=== PATIENT | female | born 1985 | race Caucasian/White ===

== ENCOUNTER → 2016-07-29 | Outpatient (CLI) | payer BC, OTHER ==
[~2016-07-29] MED LIST: PRENTAB26 PO
[2016-07-29 12:20] LABS: BASO % 0.2 %; BASO ABS # 0.02 K/uL (0-0.2); COMPLETE YES; EOS % 1.3 %; HEMATOCRIT 41.9 % (37-47); IG% 0.2 %; LYMPH ABS # 2.05 K/uL (1.2-3.4); MEAN CELL VOLUME 89.5 fL (80-100); MEAN CORPUSCULAR HEMOGLOBIN 30.1 pg (25-34); MEAN CORPUSCULAR HGB CONC 33.7 g/dl (32-36); MEAN PLATELET VOLUME 10.7 fL (7.4-10.4); MONO % 8.8 %; NEUT % 68.5 %; PLATELET COUNT 251 K/uL (130-400); RED BLOOD COUNT 4.68 M/uL (4.2-5.4); WHITE BLOOD COUNT 9.75 K/uL (4.8-10.8)
== END | disposition home or self-care (01) ==
LOC: C.LAB1850 10:41
PROVIDERS: ATTEND Obstetrics & Gynecology
DX: Z34.90 Encounter for supervision of normal pregnancy, unspecified, unspecified trimester (principal)

== ENCOUNTER → 2016-07-29 | Outpatient (CLI) | payer BC ==
[2016-07-29 15:57] LABS: URINE APPEARANCE CLEAR (CLEAR); URINE BILIRUBIN NEG (NEG); URINE COLOR YELLOW; URINE EPITHELIAL CELL AUTO >30 /lpf (0-5); URINE NITRITE NEG (NEG); URINE PH 5.5 (4.5-7.5); URINE SPECIFIC GRAVITY 1.017 (1.000-1.030); UROBILINOGEN NEG (NEG)
[2016-07-29 16:15] LABS: MANUAL MICROSCOPIC REQUIRED? NO; REVIEW REQ? NO
[2016-08-02 11:08] LABS: CHLAMYDIA TRACH RNA*** NOT DETECTED (NOT DETECTED); GC (NEIS GONORRHOEAE)RNA** NOT DETECTED (NOT DETECTED)
== END ==
LOC: C.LABSPEC 14:59
PROVIDERS: ATTEND Obstetrics & Gynecology
DX: Z34.90 Encounter for supervision of normal pregnancy, unspecified, unspecified trimester (principal)

== ENCOUNTER → 2016-09-16 | Outpatient (CLI) | payer BC ==
[2016-09-16 17:05] LABS: GTGD 50 Grams
[2016-09-19 15:17] LABS: AFP CONCENTRATION 24.9 NG/ML; AFP MULTIPLE OF MEDIAN 0.77; AFPTS GESTATIONAL AGE 16.1 WEEKS; AFPTS INSULIN DEP DIABETIC? NO; AFPTS MATERNAL WT 155 LBS; ALPHA-FETOPROTEIN RACE CAUCASIAN=W; ESTRIOL MULTIPLE OF MEDIAN 0.79; HISTORY OF NTD NO; INHIBIN A 138 PG/ML; INHIBIN A MOM 0.82; REPEAT SAMPLE? NO; hCG MULTIPLE OF MEDIAN 0.21
== END | disposition home or self-care (01) ==
LOC: C.LAB1850 15:56
PROVIDERS: ATTEND Obstetrics & Gynecology
DX: Z34.82 Encounter for supervision of other normal pregnancy, second trimester (principal)

== ENCOUNTER → 2016-12-12 | Outpatient (CLI) | payer BC ==
[2016-12-12 18:36] LABS: URINE APPEARANCE CLEAR (CLEAR); URINE BILIRUBIN NEG (NEG); URINE COLOR YELLOW; URINE NITRITE NEG (NEG); URINE SPECIFIC GRAVITY 1.013 (1.000-1.030); UROBILINOGEN NEG (NEG)
[2016-12-12 18:38] LABS: MANUAL MICROSCOPIC REQUIRED? NO; REVIEW REQ? NO
== END | disposition home or self-care (01) ==
LOC: C.LABSPEC 17:29
PROVIDERS: ATTEND Obstetrics & Gynecology
DX: Z34.82 Encounter for supervision of other normal pregnancy, second trimester (principal)

== ENCOUNTER → 2016-12-12 | Outpatient (CLI) | payer BC ==
[2016-12-12 17:52] LABS: HEMATOCRIT 36.8 % (37-47)
[2016-12-12 19:41] LABS: GTGD 50 Grams
== END | disposition home or self-care (01) ==
LOC: C.LAB 17:23
PROVIDERS: ATTEND Obstetrics & Gynecology
DX: Z34.82 Encounter for supervision of other normal pregnancy, second trimester (principal)

== ENCOUNTER → 2016-12-21 | Outpatient (CLI) | payer BC | END | disposition home or self-care (01) | LOC: C.LAB1850 07:40 | PROVIDERS: ATTEND Obstetrics & Gynecology | DX: O28.1 Abnormal biochemical finding on antenatal screening of mother (principal); Z3A.00 Weeks of gestation of pregnancy not specified ==

== ENCOUNTER → 2017-02-03 | Outpatient (CLI) | payer BC | END | disposition home or self-care (01) | LOC: C.LABSPEC 18:00 | PROVIDERS: ATTEND Obstetrics & Gynecology | DX: Z34.83 Encounter for supervision of other normal pregnancy, third trimester (principal); Z3A.00 Weeks of gestation of pregnancy not specified ==

== ENCOUNTER 2017-03-10 16:26 | Inpatient (IN) | payer OTHER ==
[~2017-03-10] VITALS: Ht 165.1 cm; Wt 77.3 kg
[2017-03-10 18:38] LABS: HEMATOCRIT 40.8 % (37-47); HEMOGLOBIN 14.1 g/dL (12.0-16.0); MEAN CELL VOLUME 90.5 fL (80-100); MEAN CORPUSCULAR HEMOGLOBIN 31.3 pg (25-34); MEAN CORPUSCULAR HGB CONC 34.6 g/dl (32-36); MEAN PLATELET VOLUME 11.4 fL (7.4-10.4); PLATELET COUNT 209 K/uL (130-400); RED CELL DISTRIBUTION WIDTH CV 13.6 % (11.5-14.5); RED CELL DISTRIBUTION WIDTH SD 44.8 fL (36.4-46.3); WHITE BLOOD COUNT 15.71 K/uL (4.8-10.8)
[2017-03-10 18:56] VITALS: Ht 165.1 cm; Wt 77.3 kg
[2017-03-10] MEDS ORDERED: OXYTOCIN 30 UNITS/500ML NSS IV ONE (20:13)
[2017-03-10] MEDS ORDERED: LACTATED RINGER'S 1000ML 1,000 ML IV SCH (20:32)
[2017-03-10] MEDS ORDERED: LACTATED RINGER'S 1000ML 1,000 ML IV PRN (20:32)
[2017-03-10] MEDS ORDERED: BENZOCAINE 20% AER SPR 82.5 GM CAN EXT PRN (20:45)
[2017-03-10] MEDS ORDERED: OXYTOCIN 30 UNITS/500ML NSS IV PRN (20:45)
[2017-03-10] MEDS ORDERED: ACETAMINOPHEN/CODEINE 300/30MG TAB PO PRN ×2 (20:45)
[2017-03-10] MEDS ORDERED: HYDROCORTISONE ACETATE 25 MG SUPP PR PRN (20:45)
[2017-03-10] MEDS ORDERED: SUPERCREAM 0.870 % 15GM JAR EXT PRN (20:45)
[2017-03-10] MEDS ORDERED: OXYCODONE/ACETAMINOPHEN 5-325 TAB PO PRN (20:45)
[2017-03-10] MEDS ORDERED: ACETAMINOPHEN 325 MG TAB PO PRN (20:45)
[2017-03-10] MEDS ORDERED: LANOLIN OINT EXT PRN (20:45)
[2017-03-10 23:15] VITALS: BP 108/62; PULSE 73; TEMP 36.4
[2017-03-10] MEDS: IBUPROFEN 600 MG TAB PO PRN (23:29)
--- NOTE | 2017-03-11 03:25 | DELIVERY SUMMARY ---
DATE OF OPERATION: 03/10/2017 PREOPERATIVE DIAGNOSES: 1. Intrauterine at 41+ weeks. 2. Spontaneous rupture of membranes for thick meconium. POSTOPERATIVE DIAGNOSES: Same. PROCEDURE: 1. Amniotomy of forebag. 2. Normal spontaneous vaginal delivery. 3. Second degree perineal laceration with repair. SURGEON: Vanesa Vazquez MD. ANESTHESIA: Local infiltration of lidocaine to the perineum. ESTIMATED BLOOD LOSS: 350 mL. DESCRIPTION OF PROCEDURE: The patient presented to labor and delivery where she was found in the office during her NST to rupture for meconium. She was examined on admission and found to be 4, 80 and -2. A forebag was ruptured for a thick meconium. The patient progressed spontaneously to complete complete and +2 station and pushed over approximately 2 contractions to deliver a viable male in YARON presentation. The rest of the infant was then delivered without difficulty. There was immediate cry and the baby was vigorous so the nose and mouth were bulb suctioned. The was placed on the maternal abdomen for drying and attention. The cord was clamped at 1 minute of life. The cord blood was obtained. Placenta delivered spontaneously intact with a 3-vessel cord. Cervix, sulci and rectum were examined and found to be intact. A second degree perineal laceration was repeated with 3-0 Vicryl in a normal standard fashion. Hemostasis with dilute Pitocin and fundal massage. Estimated blood loss 350 mL. Apgars 8 and 9. Mother and baby doing well at the end of the procedure. I attest to the content of the Intraoperative Record and any orders documented therein. Any exception s are noted below.
[2017-03-11 04:40] VITALS: BP 102/64; PULSE 64; TEMP 37.1
[2017-03-11 06:18] LABS: HEMOGLOBIN 12.1 g/dL (12.0-16.0)
--- NOTE | 2017-03-11 06:54 | OB/GYN Progress Note ---
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 Subjective conversation w/ patient, physical exam, chart review, lab review Ambulation: ambulating normally Voiding: no voiding problems Passing Gas: Yes Diet Tolerance: Regular Diet Lochia: Moderate Feeding Type: Breast Feeding Pain: controlled with motrin Review of Systems Constitutional: No fever, No chills Respiratory: No cough, No shortness of breath Cardiac: No chest pain Abdomen: No pain, No nausea, No vomiting Female : No dysuria Objective Vital Signs Date Time Temp Pulse Resp B/P (MAP) Pulse Ox O2 Delivery O2 Flow Rate FiO2 03/11/17 04:40 37.1 64 18 102/64 (77) Room Air 03/10/17 23:15 Room Air 03/10/17 23:15 36.4 73 18 108/62 (77) Room Air Physical Exam General Appearance: WELL-APPEARING, WD/WN, NO APPARENT DISTRESS Respiratory/Chest: lungs clear, normal breath sounds Cardiovascular: regular rate, rhythm, no murmur Abdomen: non tender, no organomegaly Fundus: Firm Extremities: normal inspection, no pedal edema, no calf tenderness Laboratory Results Last 24 Hours Test 03/10/17 18:26 03/11/17 06:02 White Blood Count 15.71 K/uL Red Blood Count 4.51 M/uL Hemoglobin 14.1 g/dL 12.1 g/dL Hematocrit 40.8 % 36.0 % Mean Corpuscular Volume 90.5 fL Mean Corpuscular Hemoglobin 31.3 pg Mean Corpuscular Hemoglobin Concent 34.6 g/dl RDW Standard Deviation 44.8 fL RDW Coefficient of Variation 13.6 % Platelet Count 209 K/uL Mean Platelet Volume 11.4 fL Assessment and Plan Post- Day Number: 1 Continue Routine Care: 31 f vaginal delivery on Mar 10 at 41 wks. Pt is GBS-/RI/O+ Pt is doing well clinically. Vitals reviewed and WNL. Hgb was 14.1 at admission , 12.1 today. Plan; 1. Encourage ambulation 2. Monitor lochia 3. Control pain 4. Support BF Resident Physician Supervision Note: I interviewed and examined the patient. Discussed with Dr. Madrigal and agree with findings and plan as documented in the note. Any exceptions or clarifications are listed here: Doing well, routine care. Documented By: Vanesa Vazquez
--- NOTE | 2017-03-11 06:57 | Discharge Instructions ---
Discharge Instructions Date of Service Mar 11, 2017. Admission Reason for Admission: Ruptured Membranes Discharge Discharge Diagnosis / Problem: vaginal delivery Discharge Goals Goal(s): Routine recovery after delivery Medications Continue Dispensed Medications: supercream, dermaplast, tucks, lansinoh Activity Recommendations Activity Limitations: per Instructions/Follow-up section . Instructions / Follow-Up Instructions / Follow-Up ACTIVITY RECOMMENDATIONS: * Gradual return to full activity over the next 2-3 weeks. * No lifting - nothing heavier than baby over the next 2-3 weeks. * Do not engage in vigorous exercise, sexual activity or sports until cleared by your physician. * Do not drive or operate any motorized equipment until cleared by your physician. * You may shower/bathe daily. MEDICATIONS: For discomfort or pain, you may use Acetaminophen (Tylenol), Ibuprofen (Advil), or Naproxen (Aleve) following the package directions. For constipation you may use Colace following the package directions. BREAST CARE: If you are not breast feeding: * Wear a supportive bra 24 hours a day for one to two weeks. * Avoid stimulating your breasts and nipples as much as possible during the first few weeks after delivery. * When taking a shower, have the warm water hit your back, not breasts. * When your breasts feel full, apply ice packs. Usually three to four times a day helps ease the discomfort. * Take a mild pain medication (Tylenol / Motrin) when you are uncomfortable. If breast feeding: * Use breast milk to lubricate nipples. Lansinoh cream may be used for sore nipples. You do not need to remove cream prior to breast feeding. If using a different brand of cream, check the label for directions regarding removal of cream prior to nursing. * Wear a supportive bra. * If having problems with breasts or breast feeding, call a risk control consultant or your health care provider. EPISIOTOMY CARE: After delivery, if you have an episiotomy (stitches), the following steps will ease discomfort and aid healing. * For the first 24 hours after delivery, place ice packs next to your episiotomy to help reduce swelling. * After the first 24 hour-period, sitz baths, either portable or in the tub, are suggested. A shower with a shower arm sprayed over the episiotomy may be comforting. * Jojo care should be done after each voiding and bowel movement. Squirt warm water from a plastic bottle over the perineum (region of the body between the anus and urinary opening) and pat dry. * Use Dermoplast to ease discomfort. Shake container. Peck directly over the episiotomy. Place a Tucks on a clean sanitary pad next to your episiotomy. SPECIAL CARE INSTRUCTIONS: When you are discharged from the hospital, it is important for you to follow the instructions listed below: * During the first week at home, you should be able to care for yourself and your baby. In addition, the usual light household activities are encouraged. * Limit your activities to the way you feel. Do not try to clean the house or move furniture. Be sensible. * If you actively engage in sports and have done so up until the time of your delivery, you may resume these activities as soon as you feel able. This may take up to one month or even longer. Use good judgment. * Continue to take your vitamins for at least six weeks after the of your baby. * Your diet need not be limited unless you were on a special diet before your delivery. Breast-feeding mothers need around 2500 calories per day and at least 64-80 ounces of fluid per day (8 to 10 glasses). * You should eat foods from the four major food groups. Crash diets or fad diets are to be avoided. Eating lean meats, fresh fruits and vegetables, low-fat dairy products, high fiber foods and a regular exercise program, will help you get back to your pre- weight without putting your health at risk. * Constipation is sometimes a problem after delivery. Take a mild laxative as needed. If breast feeding, Milk of Magnesia is acceptable to use. You may use a suppository or Fleets enema if no episiotomy. * A daily shower or tub bath is suggested. Be sure to thoroughly and gently dry the perineum. * A bloody vaginal discharge will usually continue until around four weeks post . A small amount of bleeding may continue for as long as six weeks. Vaginal discharge changes from the bright red bleeding after delivery to pink then brownish and finally yellowish-pink before becoming white and disappearing. * Bleeding may increase with activity. Your first period may come in 4-8 weeks. If you are breast feeding, your period may be delayed even longer. * [place] (sex) can begin whenever both you and your partner feel comfortable and do not have any form of genital infection. It is recommended that you wait at least six weeks for internal and external healing to occur. If you have questions, please talk to your health care practitioner. A condom should be used to prevent infection and . * Foreplay, gentle intercourse and lubrication is very important the first several times to prevent pain. A water-based lubricant such as K-Y jelly or Astroglide may be used. * If you have RH negative blood and your baby is RH positive, you will receive RHOGAM by injection prior to discharge. The nurse will give you a card to keep with you that has the date and place that you received RHOGAM after delivery. * During your care, you had a Rubella screen done to check for the presence of rubella antibodies in your blood. If your test was negative, you will receive a Rubella vaccine prior to discharge. This vaccine may cause a fever, soreness at the injection site and flu-like symptoms. If these symptoms persist, notify your health care practitioner. is not advised for one month after a Rubella vaccine. * Verbalizes understanding of car seat law as reviewed with patient nursing. * Car Seat hand-out given and reviewed with patient by nursing. * Shaken baby information reviewed with patient by nursing. Call you doctor if: * Heavy bleeding (saturating several pads an hour) or passing clots the size of your fist. * A fever >101 degrees F (38.3 degrees C) on two occasions four hours apart and /or chills. * Unusual pain in the pelvic or vaginal areas. * "Baby Blues" lasting longer than two weeks. If you have any questions or concerns, call your health care practitioner at . FOLLOW UP VISIT: * Please call the office at to schedule a 6 week examination. It is important you keep this appointment. It is important for you to make arrangements for either yearly or twice yearly check-ups thereafter. Current Hospital Diet Patient's current hospital diet: Regular OB Diet Discharge Diet Recommended Diet: Regular OB Diet Pending Studies Studies pending at discharge: no Medical Emergencies . Who to Call and When: Medical Emergencies: If at any time you feel your situation is an emergency, please call 911 immediately. . Non-Emergent Contact Non-Emergency issues call your: Dredge Hand . . "Provider Documentation" section prepared by Balwinder Madrigal. . VTE Core Measure Inpt VTE Proph given/why not?: Treatment not indicated
[2017-03-11 07:35] VITALS: BP 104/67; PULSE 72; TEMP 37; O2SAT 96
[2017-03-11] MEDS: IBUPROFEN 600 MG TAB PO PRN ×3 (07:42→21:42)
[2017-03-11] MEDS: PRENATAL VITAMIN TAB PO SCH (07:42)
[2017-03-11] MEDS: DOCUSATE SODIUM 100 MG CAP PO SCH ×2 (07:42→20:02)
[2017-03-11] MEDS ORDERED: DIPHTHERIA/TETANUS/PERTUSSIS 0.5 ML SYR/VIAL IM. ONE (09:00)
[2017-03-11 11:45] VITALS: BP 98/64; PULSE 78; TEMP 37.3; O2SAT 96
[2017-03-11 14:50] VITALS: BP 100/65; PULSE 82; TEMP 37; O2SAT 96
[2017-03-11 20:00] VITALS: BP 109/69; PULSE 80; TEMP 36.4
[2017-03-12 00:45] VITALS: BP 103/64; PULSE 65; TEMP 36.4
[2017-03-12 07:17] VITALS: BP 103/66; PULSE 60; TEMP 37.2
[2017-03-12] MEDS: PRENATAL VITAMIN TAB PO SCH (07:48)
[2017-03-12] MEDS: DOCUSATE SODIUM 100 MG CAP PO SCH (07:48)
[2017-03-12] MEDS: IBUPROFEN 600 MG TAB PO PRN (07:51)
[2017-03-12 08:00] VITALS: BP_DIAS 66; PULSE 60; TEMP 37.2
--- NOTE | 2017-03-12 08:19 | Progress Note ---
Subjective Mar 12, 2017. Subjective conversation w/ patient, physical exam Ambulation: ambulating normally Voiding: no voiding problems Passing Gas: Yes Diet Tolerance: Regular Diet Lochia: Moderate Feeding Type: Breast Feeding Review of Systems Constitutional: No fever, No chills Respiratory: No cough Cardiac: No chest pain Objective Vital Signs Date Time Temp Pulse Resp B/P (MAP) Pulse Ox O2 Delivery O2 Flow Rate FiO2 03/12/17 07:17 37.2 60 18 103/66 (78) 03/12/17 00:45 Room Air 03/12/17 00:45 36.4 65 18 103/64 (77) Room Air 03/11/17 20:00 36.4 80 18 109/69 (82) Room Air 03/11/17 14:50 37.0 82 16 100/65 (77) 96 Room Air 03/11/17 14:50 96 Room Air 03/11/17 11:45 37.3 78 18 98/64 (75) 96 Room Air Physical Exam General Appearance: WELL-APPEARING, NO APPARENT DISTRESS Respiratory/Chest: no respiratory distress, no accessory muscle use Cardiovascular: no edema Abdomen: non tender, soft Fundus: Firm Extremities: no calf tenderness Assessment and Plan Post- Day#: 2 Continue Routine Care: Eager for discharge, instructions reviewed
== END 2017-03-12 11:15 | disposition home or self-care (01) | DRG 775 ==
LOC: C.LD 17:46 → C.OBG 22:48
PROVIDERS: ADMIT Obstetrics & Gynecology; ATTEND Obstetrics & Gynecology
PROC: 0KQM0ZZ Repair Perineum Muscle, Open Approach (ICD-10-PCS; principal; 2017-03-10)
PROC: 109 Obstetrics, Pregnancy, Drainage (ICD-10-PCS; principal; 2017-03-10)
PROC: 10E0XZZ Delivery of Products of Conception, External Approach (ICD-10-PCS; principal; 2017-03-10)
DX: O70.1 Second degree perineal laceration during delivery (principal); Z37.0 Single live birth; Z3A.41 41 weeks gestation of pregnancy

== ENCOUNTER → 2017-04-21 | Outpatient (CLI) | payer OTHER | END | disposition home or self-care (01) | LOC: C.PAPS 11:11 | PROVIDERS: ATTEND Obstetrics & Gynecology | DX: Z01.419 Encounter for gynecological examination (general) (routine) without abnormal findings (principal) ==

== ENCOUNTER 2019-05-30 07:57 | Inpatient (IN) ==
[2019-05-30] MEDS ORDERED: OXYTOCIN 30 UNITS/500 ML BAG IV PRN ×2 (08:25→17:21)
[2019-05-30] MEDS ORDERED: LACTATED RINGER'S 1,000 ML IV PRN (08:25)
[2019-05-30 08:53] LABS: Hematocrit (blood only) 40.8 % (37-47); Hemoglobin 13.9 g/dL (12.0-16.0); Mean Corpuscular Volume 91.1 fL (80-100); Mean Platelet Volume 11.5 fL (7.4-10.4); Platelet Count 181 K/uL (130-400); RDW Coefficient of Variation 13.2 % (11.5-14.5); RDW Standard Deviation 43.2 fL (36.4-46.3); Red Blood Count 4.48 M/uL (4.2-5.4); White Blood Count 10.51 K/uL (4.8-10.8)
--- NOTE | 2019-05-30 09:35 | History & Physical Report ---
Date of Service May 30, 2019 Assessment & Plan (1) 40 weeks gestation of : (2) Elective induction of labor planned: fetus category one. arom per patient desire. expectant management. Consider pit if no progression of labor. Minimal fluid or arom. History of Present Illness Chief Complaint: induction Primary Care Provider: Laith French MD Patient is a with iup at 40 1/7 who presents to labor and delivery for induction. She notes good fm. stripped membranes in office and noted some increased contractions overnight. no lof/vb. has been uncomplicated. labs--O+/ab-/ri/rprnr/hepb-/hiv-/gc/ct-/ failed 28 week gtt, passed 2 hr/gbs neg. Allergies Allergy/AdvReac Type Severity Reaction Status Date / Time No Known Allergies Allergy Verified 05/29/19 09:26 Home Medications Home Medications Medication Instructions Recorded Confirmed Type prenat.vits,con,pgz-[id number] 1 tab PO DAILY 10/02/18 05/30/19 History Saccharomyces boulardii PO 10/16/18 05/29/19 History Patient History Medical History (Updated 05/30/19 @ 09:36 by Vanesa Vazquez MD, FACOG) screening for malformation using ultrasonics Endometriosis History of chicken pox Surgical History (Updated 10/12/18 @ 15:46 by Haley Pantoja) History of salpingo-oophorectomy S/P wisdom tooth extraction Social History (Updated 10/12/18 @ 15:47 by Haley Pantoja) Preferred Language: Venezuelan Communication Ability: Effective 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 Review of Systems All systems reviewed & are unremarkable except as noted in HPI & below Physical Exam Constitutional: WD/WN, vitals as above Gastrointestinal (Abdomen): soft, nt, nd, gravid Psychiatric: A+Ox3, euthymic affect Genitourinary: cx--3/75/-2/soft/ant arom--minimal clear toco--darnell efm--140s with mod variability, accels present, no decels Results & Data Vital Signs (Past 12 Hours) Vital Signs Temp Pulse Resp BP 05/30/19 08:04 88 117/70 05/30/19 08:00 36.6 C 18 Code Status & VTE Plan VTE Prophylaxis Plan VTE Prophylaxis will be ordered: No Coding Level of Care Code None Diagnoses 40 weeks gestation of Z3A.40 Elective induction of labor planned
[2019-05-30 09:44] LABS: Mean Corpuscular Hgb Conc 34.1 g/dL (32-36)
--- NOTE | 2019-05-30 15:42 | Labor Progress Brief Note ---
Date of Service May 30, 2019 Subjective They are noting contractions about every 4 min, more painful Assessment & Plan (1) Elective induction of labor planned: making change, continue current management. fetus category one. anticipate . Physical Exam Constitutional: WD/WN, vitals as above Psychiatric: A+Ox3, euthymic affect Genitourinary: cx--5-6/100/-2 toco--q4-5min efm--140s wtih mod variability, accels present, no decels Results & Data Vital Signs (Past 12 Hours) Vital Signs Temp Pulse Resp BP 05/30/19 15:30 85 105/60 05/30/19 12:57 36.4 C L 18 05/30/19 11:03 36.4 C L 73 18 101/57 L 05/30/19 08:04 88 117/70 05/30/19 08:00 36.6 C 18 Coding Level of Care Code None Diagnoses Elective induction of labor planned
[2019-05-30] MEDS ORDERED: ACETAMINOPHEN 325 MG TAB PO PRN (17:09)
--- NOTE | 2019-05-30 17:12 | Delivery Summary ---
Vaginal Delivery Summary Date of Service May 30, 2019 Vaginal Delivery Summary Pre-operative Diagnosis: at 40 1/7 weeks Post-operative Diagnosis: same Procedure: arom EBL: 200cc Anesthesia: none Procedure: The patient pushed for one contraction to deliver a viable female in christine position. The rest of the baby was then delivered immediately through a loose nuchal cord. The baby was vigorous. The nose and mouth were bulb suctioned and the was placed in the maternal abdomen for drying and attention. Cord was clamped and cut at one minute of life. Cord blood and segment obtained. Placenta delivered spontaneous, intact with a three vessel cord. Cervix/sulci/rectum/perineum were intact. Hemostasis obtained with dilute pitocin and fundal massage. Apgars were 8/9. Mother and baby doing well at the end of the delivery.
[2019-05-30] MEDS ORDERED: DIPHTHERIA/TETANUS/PERTUSSIS 0.5 ML SYR/VIAL IM ONE (17:21)
[2019-05-30] MEDS ORDERED: BENZOCAINE 20% AER SPR 82.5 GM CAN EXT PRN (17:21)
[2019-05-30] MEDS ORDERED: bisacodyL 10 MG SUPP PR PRN (17:21)
[2019-05-30] MEDS ORDERED: HYDROCORTISONE ACETATE 25 MG SUPP PR PRN (17:21)
[2019-05-30] MEDS ORDERED: SUPERCREAM 0.870% 15 GM JAR EXT PRN (17:21)
[2019-05-30] MEDS: IBUPROFEN 600 MG TAB PO PRN ×2 (18:28→23:47)
[2019-05-30] MEDS: DOCUSATE SODIUM 100 MG CAP PO SCH (20:57)
[2019-05-31 06:21] LABS: Hematocrit (blood only) 38.4 % (37-47); Hemoglobin 12.8 g/dL (12.0-16.0)
--- NOTE | 2019-05-31 07:17 | Obstetrical Progress Note ---
Date of Service May 31, 2019 Assessment & Plan (1) Status post vaginal delivery: Doing well. Routine care. Subjective Ambulation: ambulating normally Voiding: no voiding problems Passing Gas:: Yes Diet Tolerance:: regular diet Lochia:: Small Feeding Type:: breast feeding Physical Exam Constitutional WD/WN, vitals as above Cardiovascular Extremities: no calf tenderness and no edema Gastrointestinal (Abdomen) soft, nt, nd, ff/nt at u Psychiatric A+Ox3, euthymic affect Results & Data Vital Signs (Past 12 Hours) Vital Signs Temp Pulse Resp BP Pulse Ox 05/31/19 03:45 36.6 C 59 L 14 96/60 L 97 05/30/19 23:40 36.6 C 60 16 95/62 L 96 05/30/19 19:55 36.7 C 82 16 103/61 96
[2019-05-31] MEDS ORDERED: PRENATAL VITAMIN 1 TAB PO SCH (08:00)
[2019-05-31] MEDS: IBUPROFEN 600 MG TAB PO PRN ×2 (08:03→15:53)
[2019-05-31] MEDS: DOCUSATE SODIUM 100 MG CAP PO SCH ×2 (08:04→20:10)
[2019-05-31] MEDS ORDERED: bisacodyL 5 MG TABEC PO SCH (20:00)
[2019-06-01] MEDS: IBUPROFEN 600 MG TAB PO PRN (02:39)
--- NOTE | 2019-06-01 07:47 | Obstetrical Progress Note ---
Date of Service June 01, 2019 Assessment & Plan (1) Status post vaginal delivery: D/C Home today, instructions reviewed. Subjective Ambulation: ambulating normally Voiding: no voiding problems Passing Gas:: Yes Diet Tolerance:: regular diet Lochia:: Small Feeding Type:: breast feeding Physical Exam Constitutional WD/WN, vitals as above Eyes PERRL, conjunctivae normal, anicteric sclerae Neck normal visual inspection Respiratory normal respiratory effort and able to speak in complete sentences; no respiratory distress and no labored breathing Cardiovascular Rate/Rhythm: regular rate and regular rhythm Extremities: no edema Chest (Breasts) Chest: normal inspection of chest Gastrointestinal (Abdomen) Inspection/Auscultation: abdomen normal to inspection Soft, postgravid Psychiatric A+Ox3, euthymic affect Genitourinary OB Exam Abdomen: + fundal height Fundus: + firm and + relation to umbilicus (fundus just below umbilicus); not tender Results & Data Vital Signs (Past 12 Hours) Vital Signs Temp Pulse Resp BP 06/01/19 00:00 98.1 F 56 L 18 96/50 L
== END 2019-06-01 09:52 | disposition home or self-care (01) | DRG 807 ==
LOC: 4S1 07:57 → 4S2 19:53